=== PATIENT | female | born 1965 | race Caucasian/White ===

== ENCOUNTER 2018-03-21 10:01 | Emergency (ER) | payer BC ==
[~2018-03-21] VITALS: Ht 172.7 cm; Wt 104.3 kg
[~2018-03-21 10:01] MED LIST: CLON0.1T PO; CYCL10TA2 PO; ELET40TA PO; FURO-81 PO; LORC10TA PO; OXYC30TA PO; PARO20TA4 PO; PROP120C PO; SUMA100T4 PO
[2018-03-21 10:22] VITALS: BP 159/53
--- NOTE | 2018-03-21 10:26 | NUR ---
[facility] CALLED FOR ANIMAL CONTROL TO BE NOTIFIED OF DOG BITE
--- NOTE | 2018-03-21 10:35 | NUR ---
ANIMAL CONTROL ANIMAL CONTROL AT PT BEDSIDE AT THIS TIME
--- NOTE | 2018-03-21 10:46 | DIREP ---
PROCEDURE:XRAY HAND MIN 3 VW-LT COMPARISON:None. INDICATIONS:Trauma, DOG BITE TO LEFT HAND FINDINGS: BONES:Three views of the left hand. No acute fracture, radiopaque foreign body, erosive arthritis, or dislocation is seen in the three views of the left hand. JOINTS:Normal. SOFT TISSUES:Normal. OTHER:No additional findings. CONCLUSION:No acute findings in the three views of the left hand. No fracture or radiopaque foreign body is seen. Dictated by: Slim Hart MD on 03/21/2018 at 10:55 AM
--- NOTE | 2018-03-21 10:46 | ER.PDOC ---
General Chief Complaint: Animal Bite Stated Complaint: DOGBITE Time seen by MD: 10:42 Source: patient Exam Limitations: no limitations History of Present Illness Initial Comments Patient's Dog bit her yesterday afternoon. She took the dog to the vet to have her put down. The dog was up to date on her vaccinations. Onset: yesterday Where: home Animal: dog Animal Appearance: appeared well Animal Immunizations: UTD Animal Disposition: Animal Known, Animal Control Notified Context of Attack: "unprovoked" attack Severity of Injury: bitten Injury Location: upper extremity (left hand), lower extremity (right foot) Allergies: Coded Allergies: No Known Allergies (Unverified , 09/10/14) Home Meds Reported Medications Lorcaserin HCl (Belviq) 10 Mg Tablet, 10 MG PO BID, TABLET 08/29/15 Clonidine Hcl (CLONIDINE HCL) 0.1 Mg Tablet, 1 TAB PO HS, #30 TAB 2 Refills 08/29/15 Furosemide (LASIX) 20 Mg Tablet, 1 TAB PO DAILY, #90 TAB 1 Refill 08/29/15 Oxycodone Hcl (OXYCONTIN) 30 Mg Tab.er.12h, 30 MG PO TID PRN for PAIN 08/29/15 Cyclobenzaprine Hcl (FLEXERIL) 10 Mg Tablet, 10 MG PO PRN PRN for MUSCLE SPASM, TABLET 08/29/15 Paroxetine Hcl (PAROXETINE HCL) 20 Mg Tablet, 1 TAB PO DAILY, #30 TAB 5 Refills 08/29/15 Sumatriptan Succinate (SUMATRIPTAN SUCCINATE) 100 Mg Tablet, 100 MG PO PRN PRN for HEADACHE, TABLET 08/29/15 Eletriptan Hbr (RELPAX) 40 Mg Tablet, 40 MG PO PRN PRN for HEADACHE, TABLET 08/29/15 Propranolol Hcl (INNOPRAN XL) 120 Mg Cap.er.24h, 120 MG PO DAILY 08/29/15 Past Medical History Medical History: hypertension Surgical History: cholecystectomy, knee Social History Smoking: non-smoker Alcohol Use: none Drug Use: none Reviewed Nursing Reviewed: Vital Signs, Abn. Noted Review of Systems Constitutional: no symptoms reported Eyes: no symptoms reported Ears: no symptoms reported Nose: no symptoms reported Mouth: no symptoms reported Throat: no symptoms reported Respiratory: no symptoms reported Cardiovascular: no symptoms reported Gastrointestinal: no symptoms reported Musculoskeletal: other (left hand pain) Skin: other (lacerations left hand and right foot) All Other Systems: Reviewed and Negative Physical Exam General Appearance: alert, no distress Skin: laceration (x 2 dorsal left land 1 cm each, puncture wonds on right foot. surrounding erythema and swelling left hand) Neuro/Vascular/Tendon: no vascular compromise, sensation nml, oriented x3, nml ROM, CN's nml as tested HEENT: atraumatic, PERRL, eye lids/conjun nml, ENT nml external inspect. Resp/CVS: chest non-tender, breath sounds nml, heart sounds nml, reg. rate & rhythm Extremities: ROM limited by pain (left hand) EKG/XRAY/CT/US XRAY: hand (No fracture) Course Vitals & review Data Vital Sign - Last 24 Hours 03/21/18 03/21/18 03/21/18 10:15 10:15 10:22 Temp 98.0 98.0 98.0 98.0 98.0 98.0 Pulse 77 77 77 Resp 18 B/P (MAP) 159/53 (88) Pulse Ox 99 99 Departure Time of Disposition: 11:01 Disposition: 01 HOME, SELF-CARE Impression: Primary Impression: Cellulitis and abscess of hand Additional Impressions: Dog bite of hand Dog bite of foot Condition: Stable Patient Instructions: Animal Bite, Cellulitis Referrals: LIBIA LAFLEUR (PCP) PRIMARY CARE PROVIDER Additional Instructions: Take medication as prescribed. Follow up with PCP in 2 days. Return to ED if worsening symptoms Duration or Time Spent with Pa: 30 Problem Qualifiers Additional Impressions: Dog bite of hand Encounter type: initial encounter Laterality: left Qualified Codes: S61.452A - Open bite of left hand, initial encounter; W54.0XXA - Bitten by dog, initial encounter Dog bite of foot Encounter type: initial encounter Laterality: right Qualified Codes: S91.351A - Open bite, right foot, initial encounter; W54.0XXA - Bitten by dog, initial encounter YANELI DESAI DO Mar 21, 2018 10:46
[2018-03-21 11:15] VITALS: BP 154/87
[2018-03-21 11:27] VITALS: BP 159/53
== END 2018-03-21 11:20 | disposition home or self-care (01) ==
LOC: ER 10:01
DX: S61.412A Laceration without foreign body of left hand, initial encounter (principal); S91.351A Open bite, right foot, initial encounter; L03.114 Cellulitis of left upper limb; L02.512 Cutaneous abscess of left hand; I10 Essential (primary) hypertension; Z90.49 Acquired absence of other specified parts of digestive tract; Z79.891 Long term (current) use of opiate analgesic; Z79.899 Other long term (current) drug therapy; W54.0XXA Bitten by dog, initial encounter; Y93.89 Activity, other specified; Y92.098 Other place in other non-institutional residence as the place of occurrence of the external cause; Y99.8 Other external cause status
CPT/HCPCS: 99284; 73130-LT

== ENCOUNTER 2018-04-08 17:56 | Inpatient (IN) | payer BC ==
[~2018-04-08] VITALS: Ht 172.7 cm; Wt 100.2 kg
[~2018-04-08 17:56] MED LIST changes: -DESV50TA PO; -GABA800T2 PO; -SUMA100T3 PO; -VANC250C11 PO
[2018-04-08 18:29] VITALS: BP 120/74
[2018-04-08 19:28] LABS: ABG PCO2 35.1 mmHg (35.0-45.0); ABG PH 7.465 (7.350-7.450); BE(B) 1.3 mmol/L (-2.0-2.0); HCO3act 24.7 mmol/L (22.0-26.0); pO2 53.1 mmHg (75.0-100.0)
--- NOTE | 2018-04-08 19:29 | NUR ---
ABG RESULTS ROMÁN NORWOOD, [employer] WORKER CALLED TO ALERT PO2 53 ON ABG. RECOMMENDED 2L O2/NC DR LEIJA NOTIFIED, VERBAL ORDER RECEIVED FOR OXYGEN AT 2L/NC 2L/NC PLACED ON PATIENT AT THIS TIME OXYGEN SATURATION INCREASED FROM 89-90% ON RA TO 96% ON 2L/NC
[2018-04-08 19:30] VITALS: BP 122/81
--- NOTE | 2018-04-08 20:04 | ER.PDOC ---
General Chief Complaint: General Complaint Stated Complaint: GENERAL COMPLAINT Time seen by MD: 19:56 Source: patient Exam Limitations: no limitations History of Present Illness Initial Comments Diarrhea and abdominal pain for 2 weeks. Seen earlier in Urgent care today and asked to come to the ED for abnormal labs. Severity/Quality: moderate Abdominal Pain Onset Location: Generalized Abdomen Associated Symptoms (diarrhea): watery Prior symptoms/Treatment: Similar symptoms previous, Recenly Seen Allergies: Coded Allergies: No Known Allergies (Unverified , 09/10/14) Home Meds Reported Medications Desvenlafaxine Succinate (PRISTIQ ER) 50 Mg Tab.er.24h, 1 TAB PO DAILY, #30 TAB 5 Refills 04/08/18 Gabapentin (GABAPENTIN) 800 Mg Tablet, 1 TAB PO TID, #90 TAB 3 Refills 04/08/18 Sumatriptan Succinate (IMITREX) 100 Mg Tablet, 100 MG PO PRN PRN for HEADACHE, TABLET 04/08/18 Propranolol Hcl (INNOPRAN XL) 120 Mg Cap.er.24h, 120 MG PO DAILY 08/29/15 Discontinued Reported Medications Lorcaserin HCl (Belviq) 10 Mg Tablet, 10 MG PO BID, TABLET 08/29/15 Clonidine Hcl (CLONIDINE HCL) 0.1 Mg Tablet, 1 TAB PO HS, #30 TAB 2 Refills 08/29/15 Furosemide (LASIX) 20 Mg Tablet, 1 TAB PO DAILY, #90 TAB 1 Refill 08/29/15 Oxycodone Hcl (OXYCONTIN) 30 Mg Tab.er.12h, 30 MG PO TID PRN for PAIN 08/29/15 Cyclobenzaprine Hcl (FLEXERIL) 10 Mg Tablet, 10 MG PO PRN PRN for MUSCLE SPASM, TABLET 08/29/15 Paroxetine Hcl (PAROXETINE HCL) 20 Mg Tablet, 1 TAB PO DAILY, #30 TAB 5 Refills 08/29/15 Sumatriptan Succinate (SUMATRIPTAN SUCCINATE) 100 Mg Tablet, 100 MG PO PRN PRN for HEADACHE, TABLET 08/29/15 Eletriptan Hbr (RELPAX) 40 Mg Tablet, 40 MG PO PRN PRN for HEADACHE, TABLET 08/29/15 Vital Signs First Vital Signs Date Time Temp Pulse Resp B/P (MAP) Pulse Ox O2 Delivery O2 Flow Rate FiO2 03/21/18 11:27 77 04/08/18 18:24 98.3 20 98.3 18 18:24 96 Room Air 04/08/18 18:29 120/74 (89) Last Vital Signs Date Time Temp Pulse Resp B/P (MAP) Pulse Ox O2 Delivery O2 Flow Rate FiO2 04/08/18 19:30 88 18 122/81 (95) 92 Room Air 04/08/18 18:29 98.3 98.3 Past Medical History Medical History: hypertension Surgical History: breast augmentation, cholecystectomy, , knee, tonsillectomy, tubal LMP (females 10-50): tubal Social History Smoking: non-smoker Alcohol Use: none Drug Use: none Constitutional: no symptoms reported EENTM: no symptoms reported Respiratory: no symptoms reported Cardiovascular: no symptoms reported Gastrointestinal: see HPI Genitourinary: no symptoms reported All Other Systems: Reviewed and Negative Physical Exam General Appearance: No Apparent Distress, WD/WN HEENT: PERRL/EOMI, Normal ENT Inspection, TMs Normal, Pharynx Normal Neck: Non-Tender, Full Range of Motion, Supple, Normal Inspection Respiratory: chest non-tender, lungs clear, normal breath sounds, no respiratory distress, no accessory muscle use Cardiovascular: Normal Peripheral Pulses, Regular Rate, Rhythm, No Edema, No Gallop, No JVD, No Murmur Gastrointestinal: Normal Bowel Sounds, No Organomegaly, No Pulsatile Mass, Guarding, Tenderness (generalized) Back: Normal Inspection, No CVA Tenderness, No Vertebral Tenderness Extremities: Normal Range of Motion, Non-Tender, Normal Inspection, No Pedal Edema, No Calf Tenderness, Normal Capillary Refill, Pelvis Stable 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/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 as Tested, No Motor/Sensory Deficits, Alert, Normal Mood/Affect, Oriented x 3 Skin: Normal Color, Warm/Dry Lymphatic: No Adenopathy Results/Orders Results/Orders Laboratory Tests Test 04/08/18 19:24 Blood Gas Sample Site RT BRACIAL ARTERY Blood Gas pH 7.465 (7.350-7.450) Blood Gas PCO2 35.1 mmHg (35.0-45.0) Blood Gas PO2 53.1 mmHg (75.0-100.0) Blood Gas HCO3 24.7 mmol/L (22.0-26.0) Blood Gas Base Excess 1.3 mmol/L (-2.0-2.0) George Test N/A Arterial Blood Oxygen Saturation 87.8 % (95-) Deoxyhemoglobin 12.1 % (0.2-0.6) Carboxyhemoglobin 1.0 % (0.5-1.5) Methemoglobin 0.1 % (0.2-0.6) Total Hemoglobin 13.2 % (13.5-17.5) Total Oxygen Concentration 16.1 % (13.5-17.5) Lactic Acid (Blood Gas) 0.8 MMOL/L (0.5-1.0) Blood Gas Temperature 37 Oxygen Delivery Method (LAB) RA FiO2 21.0 % (20-101) Bicarbonate 25.8 mmol/L (23-27) Administered Medications Medications (Trade) Dose Ordered Sig/Ghislaine Route PRN Reason Start Time Stop Time Status Last Admin Dose Admin Sodium Chloride 1,000 ml @ 1,200 mls/hr Q50M STAT IV 04/08/18 20:05 04/08/18 20:55 DC 04/08/18 20:10 Ketorolac Tromethamine (Toradol) 30 mg STAT STAT IV 04/08/18 20:09 04/08/18 20:10 DC 04/08/18 20:[address] abdomen/pelvis shows colitis and CBD dilated 9mm. Discussed with Dr. Mcgregor, will admit patient here, can go to a room and no antibiotics until stool analysis is back. Departure Time of Disposition: 20:02 Disposition: 09 ADMITTED INPATIENT Impression: Primary Impression: Clostridium difficile colitis Additional Impression: Respiratory failure with hypoxia Qualified Codes: J96.01 - Acute respiratory failure with hypoxia Condition: Stable Referrals: LIBIA LAFLEUR (PCP) PRIMARY CARE PROVIDER Comments Admitted to Dr. Mcgregor Duration or Time Spent with Pa: 60 mins LISS,JOSSELYN Rooney MD Apr 08, 2018 20:04
[2018-04-08] MEDS ORDERED: NS 1000ML 1,000 ML ONE (20:05)
[2018-04-08] MEDS ORDERED: NS 1000ML 1,000 ML IV STA (20:05)
[2018-04-08] MEDS ORDERED: TORADOL IV STA (20:09)
[2018-04-08] MEDS ORDERED: TORADOL ONE (20:12)
[2018-04-08 20:17] VITALS: BP 131/81
[2018-04-08] MEDS ORDERED: GABA800T2 PO (20:17)
[2018-04-08] MEDS ORDERED: DESV50TA PO (20:17)
[2018-04-08] MEDS ORDERED: SUMA100T3 PO (20:17)
--- NOTE | 2018-04-08 20:24 | DIREP ---
PROCEDURE:CHEST 1 VIEW COMPARISON:None. INDICATIONS:hypoxia FINDINGS: LUNGS/PLEURA:No significant pulmonary parenchymal abnormalities. No effusions. VASCULATURE:Normal. Unremarkable pulmonary vasculature. CARDIAC:Normal. No cardiac silhouette abnormality or cardiomegaly. MEDIASTINUM:Normal. No visible mass or adenopathy. BONES:Normal. No fracture or visible bony lesion. OTHER:Negative. CONCLUSION:Normal examination. Dictated by: Levi Quinones M.D. on 04/08/2018 at 08:22 PM
--- NOTE | 2018-04-08 20:27 | PCM.EKG ---
[facility] Test Date: 2018-04-08 Test Time: 20:29:56 Pat Name: KURT CEVALLOS Department: Room: 332 Gender: F [employer] Worker: SALUD : 1965 Requested By: JOSSELYN LEIJA Order Number: [id number] Reading MD: Josselyn LEIJA Measurements Intervals Sieper Rate: 87 P: 53 IL: 160 QRS: 81 QRSD: 86 T: 32 QT: 352 QTc: 423 Interpretive Statements Normal sinus rhythm Low voltage QRS T wave abnormality, consider anterolateral ischemia Abnormal ECG No previous ECG available for comparison Electronically Signed On 04-12-2018 1:37:44 CDT by Josselyn LEIJA Please click the below link to view image of tracing.
[2018-04-08] MEDS ORDERED: IMITREX PO PRN (21:00)
[2018-04-08] MEDS: NEURONTIN PO SCH (21:00)
[2018-04-08 21:15] VITALS: BP 108/55
[2018-04-08] MEDS: NS 1000ML 1,000 ML IV SCH (21:30)
[2018-04-08] MEDS ORDERED: TYLENOL ONE (23:54)
[2018-04-09 01:44] VITALS: BP 135/68
[2018-04-09 05:09] VITALS: BP 154/76
[2018-04-09] MEDS ORDERED: ZOFRAN ONE (05:12)
[2018-04-09] MEDS: ZOFRAN IV PRN ×4 (05:20→23:13)
[2018-04-09 05:35] LABS: BASOPHIL % 0.1 % (0.0-0.2); EOSINOPHIL # 0.3 10^3/uL (0.0-0.2); EOSINOPHIL % 2.4 % (0.0-5.0); HEMOGLOBIN 11.5 g/dL (12.0-15.0); LYMPHOCYTES % 7.2 % (24.0-44.0); MEAN CELL HGB 29.3 pg (26-34); MEAN CELL HGB CONCENTRATION 32.9 g/dL (33-37); MEAN CORP VOLUME 89.1 fL (78-100); MEAN PLATELET VOLUME 9.5 fL (7.8-11.0); MONOCYTES # 0.9 10^3/uL (0.3-0.8); MONOCYTES % 6.4 % (5.0-12.0); NEUTROPHIL # 11.1 10^3/uL (1.8-7.7); NEUTROPHILS % 83.7 % (41.0-85.0); RED CELL DISTRIBUTION WIDTH 12.9 % (11.5-14.5); WHITE BLOOD CELL 13.3 10^3/uL (4.5-11.0)
[2018-04-09] MEDS: VANCOMYCIN HCL PO SCH ×2 (06:00)
[2018-04-09 06:16] LABS: CALCIUM 7.8 mg/dL (8.4-10.5)
--- NOTE | 2018-04-09 06:45 | NUR ---
RECEIVED REPORT FROM Iker MAYS RN. [facility].
[2018-04-09 07:30] VITALS: BP 111/67
--- NOTE | 2018-04-09 07:58 | NUR ---
NOTIFIED DR. MCMAHON OF POTASSIUM LEVEL 3.1. PATIENT C/O PAIN 8/10 TO ABDOMEN AND LOW GRADE FEVER 99.8 NEW ORDERS RECEIVED FOR DILAUDID 1MG Q4HR PRN PAIN. RBTO.
[2018-04-09] MEDS ORDERED: WATER IV SCH ×3 (08:00)
[2018-04-09] MEDS ORDERED: DILAUDID IV PRN (08:00)
[2018-04-09] MEDS ORDERED: VANCOMYCIN HCL IV SCH ×3 (08:00)
[2018-04-09] MEDS ORDERED: [UNRECOGNIZED DRUG - OTHER] IV SCH ×3 (08:00)
[2018-04-09] MEDS: NEURONTIN PO SCH ×3 (08:23→21:21)
[2018-04-09] MEDS: INDERAL PO SCH (09:00)
[2018-04-09] MEDS: NS 1000ML 1,000 ML IV SCH ×3 (09:29→23:08)
--- NOTE | 2018-04-09 11:00 | NUR ---
DR. MCMAHON @ BEDSIDE NEW ORDERS RECEIVED FOR FULL LIQUID DIET WITH BOOST. PATIENT CAN TAKE HOME MEDICATIONS INDERAL AND PRISTIQ.
--- NOTE | 2018-04-09 11:45 | NUR ---
NOTIFIED DR. MCMAHON OF [facility] OF 103.1 NEW ORDERS RECEIVED FOR TYLENOL 1GM PO Q6HR PRN FEVER. RBTO.
[2018-04-09] MEDS: WATER IV SCH ×6 (11:52→18:00)
[2018-04-09] MEDS: [UNRECOGNIZED DRUG - OTHER] IV SCH ×6 (11:52→18:00)
[2018-04-09] MEDS: VANCOMYCIN HCL IV SCH ×6 (11:52→18:00)
[2018-04-09 12:00] VITALS: BP 131/78
[2018-04-09] MEDS: TYLENOL PO PRN ×2 (12:06→19:30)
--- NOTE | 2018-04-09 12:50 | NUR ---
TRANSFERRED TO [facility] FLOOR VIA WHEELCHAIR WITH PATIENT BELONGINGS. REPORT GIVEN TO SARAN BENIETZ. RELINQUISHED CARE.
--- NOTE | 2018-04-09 12:50 | NUR ---
RECEIVED PATIENT TO ROOM 332 FROM ICU. REPORT RECEIVED FROM SARAN MATA. PATIENT AWAKE AND ALERT. C/O ABDOMINAL DISCOMFORT. REPORTS EXPERIENCING DIARRHEA, AND NAUSEA. PATIENT WITH DX OF COLITIS AND RESPIRATORY FAILURE WITH HYPOXIA WHICH IS NOW RESOLVED. PATIENT IS NOW ON ROOM AIR AND NO S/S RESPIRATORY DISTRESS NOTED. PATIENT WITH TEMP 103.1 PRIOR TO TRANSFER TO MED SURG AND MEDICATED WITH TYLENOL. PATIENT WITH IV IN LEFT HAND 20G WITH NS TO INFUSE @ 100CC/HR. IV FLUIDS NOT HANGING AT PRESENT DUE TO TRANSFER. WILL CONNECT TO IV PUMP. INSTRUCTED PATIENT RE: ISOLATION IN ROOM DUE TO CDIFF, INTAKE AND OUTPUT, PAIN MANAGEMENT, S/S IV INFILTRATION, MED REGIME, MD ROUNDS, FULL LIQUID DIET, S/S TO REPORT, BED CONTROLS, USE OF CALL LIGHT. PATIENT VERBALIZES UNDERSTANDING.
--- NOTE | 2018-04-09 14:00 | NUR ---
PATIENT RESTING IN BED. NO DISTRESS NOTED. PATIENT C/O FEELING TIRED AND STATES "IM JUST SO TIRED OF THIS DIARRHEA. IT ALL STARTED FROM A DOG BITE!!" EMOTIONAL SUPPORT GIVEN.
--- NOTE | 2018-04-09 14:20 | NUR ---
TEMP REASSESSED AND TEMP 99.9.
[2018-04-09 16:00] VITALS: BP 124/71
--- NOTE | 2018-04-09 16:00 | NUR ---
TEMP 100.2 AXILLARY. PATIENT LYING IN BED. C/O FEELING SLIGHTLY CHILLED. INSTRUCTED COULD NOT ADD BLANKETS DUE TO TEMP INCREASING. PATIENT VERBALIZED UNDERSTANDING.
[2018-04-09] MEDS: TORADOL IV PRN (17:50)
--- NOTE | 2018-04-09 17:59 | NUR ---
PATIENT C/O PAIN ALL OVER AND NAUSEA. PATIENT ASSISTED UP TO TOILET AND BEGAN TO DRY HEAVE. ADMINISTERED TORADOL 15MG IV AND ZOFRAN 4MG IV. PATIENT WITH DIARRHEA STOOL. PATIENT C/O FEELING FEVERISH AND TEMP IS 102 ORAL. STOOL IS ORANGE WITH THICK MUCOUS AND FOUL ODOR.
--- NOTE | 2018-04-09 18:47 | NUR ---
TEMP RECHECKED WITH RESULTS 101.7. STATES "PAIN IS BETTER BUT MY NECK IS REALLY TENSE."
--- NOTE | 2018-04-09 19:20 | NUR ---
REPORT REPORT RECEIVED FROM ELI Dong RN
--- NOTE | 2018-04-09 19:30 | NUR ---
UPDATE PATIENT GIVEN TYLENOL TO REDUCE FEVER OF 100.5. WILL REASSESS.
[2018-04-09 19:51] VITALS: BP 103/66
--- NOTE | 2018-04-09 22:15 | NUR ---
STATUS UPDATE PATIENT TEMPERATURE DOWN TO 99.5 WILL CONTINUE TO MONITOR.
--- NOTE | 2018-04-09 23:17 | NUR ---
STATUS UPDATE TEMPERATE 98.7. WILL CONTINUE TO MONITOR
[2018-04-10 00:16] VITALS: BP 119/72
[2018-04-10] MEDS: TORADOL IV PRN ×4 (00:24→20:58)
--- NOTE | 2018-04-10 00:27 | NUR ---
STATUS UPDATE PATIENT COMPLAINT OF SEVERE PAIN AND NAUSEA. ZOFRAN AND TORADOL GIVEN, WILL REASSESS. PATIENT TEMPERATURE UP TO 100.5-WILL REASSESS.
[2018-04-10 04:29] VITALS: BP 101/58
[2018-04-10] MEDS: ZOFRAN IV PRN ×4 (04:39→20:46)
[2018-04-10] MEDS: TYLENOL PO PRN (05:00)
[2018-04-10] MEDS: VANCOMYCIN HCL IV SCH ×6 (05:02)
[2018-04-10] MEDS: [UNRECOGNIZED DRUG - OTHER] IV SCH ×6 (05:02)
[2018-04-10] MEDS: WATER IV SCH ×6 (05:02)
[2018-04-10 06:10] LABS: BASOPHIL % 0.1 % (0.0-0.2); EOSINOPHIL # 0.3 10^3/uL (0.0-0.2); EOSINOPHIL % 1.9 % (0.0-5.0); HEMOGLOBIN 10.6 g/dL (12.0-15.0); LYMPHOCYTES # 0.6 10^3/uL (1.0-4.8); LYMPHOCYTES % 3.7 % (24.0-44.0); MEAN CELL HGB 29.4 pg (26-34); MEAN CELL HGB CONCENTRATION 33.1 g/dL (33-37); MEAN CORP VOLUME 88.9 fL (78-100); MEAN PLATELET VOLUME 9.7 fL (7.8-11.0); MONOCYTES # 0.7 10^3/uL (0.3-0.8); MONOCYTES % 4.3 % (5.0-12.0); NEUTROPHIL # 13.9 10^3/uL (1.8-7.7); NEUTROPHILS % 89.7 % (41.0-85.0); RED CELL DISTRIBUTION WIDTH 13.2 % (11.5-14.5); WHITE BLOOD CELL 15.5 10^3/uL (4.5-11.0)
[2018-04-10 06:51] LABS: CALCIUM 7.5 mg/dL (8.4-10.5); CARBON DIOXIDE 25.8 mmol/L (20.0-32)
--- NOTE | 2018-04-10 07:25 | NUR ---
REPORT RECEIVED REPORT FROM SARAN MONSALVE. ASSUMED CARE FOR PATIENT AT THIS TIME.
[2018-04-10 08:41] VITALS: BP 115/73
[2018-04-10] MEDS: NEURONTIN PO SCH ×3 (09:00→20:59)
[2018-04-10] MEDS: NS 1000ML 1,000 ML IV SCH ×2 (09:01→21:54)
[2018-04-10] MEDS: INDERAL PO SCH (09:35)
--- NOTE | 2018-04-10 09:44 | NUR ---
GABAPENTIN NOT GIVEN DUE TO PATIENT ALREADY TAKING HER HOME MED THIS MORNING.
[2018-04-10] MEDS ORDERED: WATER PO SCH ×3 (10:26)
[2018-04-10] MEDS ORDERED: VANCOMYCIN HCL PO SCH ×3 (10:26)
[2018-04-10] MEDS ORDERED: [UNRECOGNIZED DRUG - OTHER] PO SCH ×3 (10:26)
[2018-04-10] MEDS ORDERED: MAGNESIUM SULFATE 50 ML IV ONE (11:00)
[2018-04-10] MEDS: [UNRECOGNIZED DRUG - REMARK] PO SCH (11:27)
[2018-04-10] MEDS: VANCOMYCIN HCL PO SCH ×6 (12:00→18:00)
[2018-04-10] MEDS: [UNRECOGNIZED DRUG - OTHER] PO SCH ×6 (12:00→18:00)
[2018-04-10] MEDS: WATER PO SCH ×6 (12:00→18:00)
[2018-04-10 12:03] VITALS: BP 109/72
[2018-04-10 12:21] LABS: BAND NEUTROPHILS 22 % (2-6); EOSINOPHIL 4 % (1-4); LYMPHOCYTE 2 % (25-36); MONOCYTE 3 % (3-9); MYELOCYTES 1 %; SEGMENTED NEUTROPHILS 66 % (31-76)
[2018-04-10] MEDS: KLOR-CON 10 PO SCH ×2 (15:01→20:59)
[2018-04-10 16:32] VITALS: BP 107/84
[2018-04-10 19:02] VITALS: BP 117/78
--- NOTE | 2018-04-10 21:47 | HPH ---
ADMIT DATE: 04/09/2018 CHIEF COMPLAINT: Diarrhea and abdominal pain for 2 weeks. HISTORY OF PRESENT ILLNESS: The patient is a 53-year-old woman with a past medical history significant for chronic pain with opiate dependence, hypertension, history of migraine headaches, and anxiety disorder. She presented to urgent care earlier in the day prior to presentation to ER with complaints of 2-week history of diarrhea and abdominal pain. She recently had been on some antibiotics. She is not sure which ones. It appears that might have been on Augmentin. She states she did complete those antibiotics. She started developing watery diarrhea about the third day of taking antibiotics. Symptoms continued to progress. She started having significant abdominal pain. She went to urgent care and they had some labs drawn. She is told to go to the Emergency Room due to the abnormal labs. She had a WBC count 19.5 on those labs. Workup in ER did reveal she had clinical history consistent with C. diff colitis and C. diff toxin A and B was positive. PAST MEDICAL HISTORY: Includes hypertension, trigeminal neuralgia, chronic pain with opiate dependence, anxiety. PAST SURGICAL HISTORY: She has had tonsillectomy, right knee replacement, x 2, breast augmentation, cholecystectomy and tubal ligation. ALLERGIES: NO KNOWN DRUG ALLERGIES. HOME MEDICATIONS: List includes Pristiq 50 mg daily, gabapentin 800 mg 3 times a day, propranolol 120 mg daily, Imitrex as needed for headaches. SOCIAL HISTORY: Does live at home. Denies any alcohol, tobacco or illicit drug use history. FAMILY HISTORY: Negative for early coronary artery disease or diabetes. REVIEW OF SYSTEMS: CARDIAC: Denies chest pain, shortness of breath or dyspnea on exertion. PULMONARY: No cough, sputum production or pleuritic chest pain. GASTROINTESTINAL: Positive for nausea, diarrhea, abdominal pain. All else negative in 10 point review of system except as in HPI. PHYSICAL EXAMINATION: VITAL SIGNS: Upon arrival to the ER: Height 172.7 cm, weight 97.98 kilograms, temperature 98.3, pulse 89, respiratory rate is 20, blood pressure 120/74, O2 saturation 96% on room air. GENERAL: She is alert, in no acute distress at time of exam. HEENT: Pupils equal, round, reactive to light. Sclerae are anicteric. Oropharynx at time of exam was clear. Mucous membranes are slightly dry. NECK: Supple, no lymphadenopathy. CARDIOVASCULAR: At time of exam was regular rate and rhythm. LUNGS: Clear bilaterally. No wheezing. ABDOMEN: Soft. Bowel sounds are present. She is tender to palpation diffusely. No rebound or guarding. EXTREMITIES: No cyanosis, clubbing or significant edema. NEUROLOGIC: Grossly nonfocal. LABORATORY DATA: Her initial WBC count yesterday in urgent care was 19.5. Labs today, CBC: WBCs are 13.3, hemoglobin 11.5, platelets 245. Differential: 84% neutrophils, 7% lymphocytes, 6% monocytes. Sodium 137, potassium 3.1, chloride 103, CO2 is 28, BUN 7, creatinine 1.02, glucose 123, calcium 7.8. Initial lactate of 0.8. C. diff toxin A and B is positive. IMAGING STUDIES: She had a chest x-ray performed in the Emergency Room, which was normal. ASSESSMENT AND PLAN: This patient is a 53-year-old woman here with C. diff colitis with history of hypertension, chronic pain. 1. We will start with oral vancomycin for the C. diff colitis, it is fairly moderately advanced form of C. diff and was very symptomatic. 2. Continue her cardiovascular medications. 3. P.r.n. sumatriptan for headaches. 4. DVT prophylaxis with SCDs. 5. She has a history of chronic pain with opiate dependence. We will alternate between hydromorphone and Toradol for relief of pain. Continue gabapentin. Time spent on 04/09/2018 was 45 minutes. This plan was discussed with the patient. She is her own decision maker. She does understand and concur with plans. Time spent on history and physical is 45 minutes. Jonn Mcgregor MD DR: KHALIF/sharmin JOB# [id number]
[2018-04-11 00:09] VITALS: BP 99/61
[2018-04-11] MEDS: TORADOL IV PRN ×3 (04:00→17:01)
[2018-04-11] MEDS: ZOFRAN IV PRN ×3 (04:00→17:01)
[2018-04-11 04:43] VITALS: BP 116/75
[2018-04-11] MEDS: NS 1000ML 1,000 ML IV SCH ×2 (05:48→19:30)
[2018-04-11] MEDS: WATER PO SCH ×12 (06:00→20:59)
[2018-04-11] MEDS: [UNRECOGNIZED DRUG - OTHER] PO SCH ×12 (06:00→20:59)
[2018-04-11] MEDS: VANCOMYCIN HCL PO SCH ×12 (06:00→20:59)
[2018-04-11 07:32] VITALS: BP 126/70
[2018-04-11] MEDS ORDERED: REGLAN IV PRN (08:00)
[2018-04-11 08:28] LABS: BASOPHIL % 0.2 % (0.0-0.2); EOSINOPHIL # 0.5 10^3/uL (0.0-0.2); EOSINOPHIL % 5.3 % (0.0-5.0); HEMOGLOBIN 10.5 g/dL (12.0-15.0); LYMPHOCYTES % 10.6 % (24.0-44.0); MEAN CELL HGB 29.2 pg (26-34); MEAN CELL HGB CONCENTRATION 33.3 g/dL (33-37); MEAN CORP VOLUME 87.5 fL (78-100); MEAN PLATELET VOLUME 9.8 fL (7.8-11.0); MONOCYTES # 0.6 10^3/uL (0.3-0.8); MONOCYTES % 6.5 % (5.0-12.0); NEUTROPHIL # 7.5 10^3/uL (1.8-7.7); NEUTROPHILS % 76.4 % (41.0-85.0); RED CELL DISTRIBUTION WIDTH 13.2 % (11.5-14.5); WHITE BLOOD CELL 9.9 10^3/uL (4.5-11.0)
[2018-04-11 08:50] LABS: CALCIUM 7.6 mg/dL (8.4-10.5); CARBON DIOXIDE 21.3 mmol/L (20.0-32)
[2018-04-11] MEDS: NEURONTIN PO SCH ×3 (09:00→20:58)
[2018-04-11] MEDS: [UNRECOGNIZED DRUG - REMARK] PO SCH (09:00)
[2018-04-11] MEDS: INDERAL PO SCH (09:00)
--- NOTE | 2018-04-11 09:00 | NUR ---
STATUS PT AMBULATED TO BATHROOM AND BACK TO BED. SCD'S IN PLACE.
[2018-04-11] MEDS: KLOR-CON 10 PO SCH ×3 (09:08→20:58)
[2018-04-11] MEDS: PROTONIX IV IV SCH (09:08)
[2018-04-11] MEDS: BACID PO SCH (09:08)
--- NOTE | 2018-04-11 09:48 | NUR ---
MEDICATION GABAPENTIN NOT GIVEN DUE TO PATIENT HAVING ALREADY TAKEN HER HOME MED THIS MORNING. INDEROL AND PRISTIQ WERE NOT AVAILABLE. PT WILL TAKE HOME MEDS.
--- NOTE | 2018-04-11 11:00 | NUR ---
DISCHARGE GOAL CM VISITED WITH PATIENT REGARDING DISCHARGE PLAN AND NEEDS. PATIENT LIVES AT HOME WITH HER AND KIDS. SHE IS RETIRED, ACTIVE AND INDEPENDENT AND DOES NOT USE ANY TYPE OF DME. DISCHARGE GOAL IS TO DISCHARGE HOME WITH HER FAMILY AND CONTINUE ROUTINE SELF CARE. CM DEPT WILL CONTINUE TO MONITOR DISCHARGE NEEDS.
[2018-04-11 11:42] VITALS: BP 112/75
[2018-04-11 16:44] VITALS: BP 116/68
--- NOTE | 2018-04-11 19:51 | NUR ---
Report Received report from Geri Ann LVN
[2018-04-11 22:16] VITALS: BP 111/75
--- NOTE | 2018-04-11 23:09 | PNH ---
DATE: 04/10/2018 SUBJECTIVE: She still has nausea and diarrhea. She has significant abdominal pain and is using Dilaudid frequently. No other acute events overnight. OBJECTIVE: VITAL SIGNS: T-max last 24 hours 100.5, pulse of 80, respiratory rate 18, blood pressure 107/84, O2 saturation 93% on room air. GENERAL: She is alert, in no acute distress at time of exam. HEENT: Pupils equal, round, reactive to light. Sclerae are anicteric. Oropharynx is clear. Mucous membranes are moist. NECK: Supple, no lymphadenopathy. CARDIOVASCULAR: At time of exam was regular rate and rhythm. LUNGS: Clear bilaterally. ABDOMEN: Soft. Bowel sounds are present. Tender to palpation diffusely. No rebound or guarding. EXTREMITIES: No cyanosis, clubbing or significant edema. NEUROLOGIC: Grossly nonfocal. LABORATORY DATA: CBC: White count 15.5, hemoglobin 10.6, platelets 241. Differential: 90% neutrophils, 4% lymphocytes, 4% monocytes. Sodium 139, potassium 2.7, chloride 104, CO2 is 26, BUN 11, creatinine 1.1, glucose is 119, magnesium is 1.5, total bilirubin 0.6, AST 15, ALT is 11, alkaline phosphatase 86, total protein 4.8, albumin is 1.8. ASSESSMENT AND PLAN: The patient is a 53-year-old woman with C. diff colitis with severe protein-calorie malnutrition, multiple electrolyte abnormalities including hypomagnesemia, hypokalemia, with anemia likely due to chronic disease. 1. We will continue oral vancomycin q.6 hours. She has refused a couple of doses, delayed the timing due to her concern for nausea. 2. The diet will be as tolerated with supplements. We will ask for Boost or Ensure. Time spent on 04/10/2018 was 25 minutes. Jonn Mcgregor MD DR: KHALIF/sharmin JOB# [id number]
--- NOTE | 2018-04-11 23:39 | PNH ---
DATE: 04/11/2018 SUBJECTIVE: She is still having some diarrhea, relatively small in volume. Reportedly, she is not ambulating except to get out of bed to go to the bathroom. She delayed her morning dose of vancomycin due to not feeling well. She did get one bottle of Ensure last night. OBJECTIVE: VITAL SIGNS: T-max last 24 hours is 100.1, pulse 97, respiratory rate is 18, blood pressure 126/70, O2 saturation 97% on room air. GENERAL: She is alert, in no acute distress at time of exam. HEENT: Pupils equal, round and reactive to light. Sclerae are anicteric. Oropharynx is clear. Mucous membranes are moist. NECK: Supple, no lymphadenopathy. CARDIOVASCULAR: At time of exam was regular rate and rhythm. LUNGS: Clear bilaterally. No wheezing. ABDOMEN: Soft. Bowel sounds are present, slightly tender to palpation. EXTREMITIES: No cyanosis, clubbing or significant edema. NEUROLOGIC: Grossly nonfocal. ASSESSMENT AND PLAN: The patient is a 53-year-old woman here with Clostridium difficile colitis, severe protein-calorie malnutrition, multiple electrolyte abnormalities. 1. We will add a probiotic to her meal, continue with Ensure, continue oral vancomycin. Encourage the patient to take vancomycin as scheduled. 2. Appropriate p.r.n. pain and nausea medication. We will add Toradol and IV Protonix. She is actually waking up to ask for Dilaudid on schedule. Time spent on 04/11/2018 is 25 minutes. Jonn Mcgregor MD DR: KHALIF/sharmin JOB# [id number] GERMAINE
[2018-04-12 02:01] VITALS: BP 118/69
[2018-04-12] MEDS: VANCOMYCIN HCL PO SCH ×12 (02:14→21:38)
[2018-04-12] MEDS: [UNRECOGNIZED DRUG - OTHER] PO SCH ×12 (02:14→21:38)
[2018-04-12] MEDS: WATER PO SCH ×12 (02:14→21:38)
[2018-04-12] MEDS: ZOFRAN IV PRN ×2 (04:53→10:59)
[2018-04-12] MEDS: TORADOL IV PRN ×2 (04:56→11:01)
[2018-04-12 05:20] VITALS: BP 118/69
[2018-04-12] MEDS: NS 1000ML 1,000 ML IV SCH ×2 (05:30→15:30)
--- NOTE | 2018-04-12 06:50 | NUR ---
REPORT RECEIVED REPORT FROM MORIS BRYANT. ASSUMED CARE OF PT.
[2018-04-12 08:27] VITALS: BP 123/86
[2018-04-12] MEDS: [UNRECOGNIZED DRUG - REMARK] PO SCH (09:00)
[2018-04-12] MEDS: NEURONTIN PO SCH ×3 (09:00→21:39)
[2018-04-12] MEDS: KLOR-CON 10 PO SCH ×3 (09:42→21:39)
[2018-04-12] MEDS: BACID PO SCH (09:42)
[2018-04-12] MEDS: PROTONIX IV IV SCH (09:42)
[2018-04-12] MEDS: INDERAL PO SCH (09:45)
[2018-04-12 11:10] VITALS: BP 108/72
--- NOTE | 2018-04-12 15:03 | NUR ---
STATUS PT IS RESTING IN BED. NO SIGNS OF DISCOMFORT OR DISTRESS. PT EDUCATED ON DIET UPON DISCHARGE. PT STATES SHE WILL TAKE A SHOWER. PT IS INDEPENDENT ON ADL'S. NO OTHER NEEDS NOTED. PT STATES SHE WILL CALL WHEN SHE'S OUT OF THE SHOWER. CALL LIGHT IS WITHIN REACH.
[2018-04-12 15:47] VITALS: BP 117/68
--- NOTE | 2018-04-12 19:14 | NUR ---
REPORT REPORT GIVEN TO ONCOMING SHIFT
[2018-04-12 20:36] VITALS: BP 117/76
[2018-04-12] MEDS: TYLENOL PO PRN (20:45)
--- NOTE | 2018-04-12 23:20 | PNH ---
DATE: 04/12/2018 SUBJECTIVE: She is feeling better. She is eating a little bit better. She states she still has some diarrhea. No other acute events overnight. OBJECTIVE: VITAL SIGNS: T-max last 24 hours is 98.9, pulse 88, respiratory rate is 18, blood pressure 118/69, O2 saturation 96% on room air. GENERAL: She is alert, in no acute distress at time of exam. HEENT: Pupils equal, round, reactive to light. Sclerae are anicteric. Oropharynx is clear. Mucous membranes are moist. NECK: Supple, no lymphadenopathy. CARDIOVASCULAR: Regular rate and rhythm. LUNGS: Clear bilaterally. ABDOMEN: Soft. Bowel sounds are present, nontender to palpation. EXTREMITIES: No cyanosis, clubbing or significant edema. NEUROLOGIC: Grossly nonfocal. ASSESSMENT AND PLAN: The patient is a 53-year-old woman here with Clostridium difficile colitis with anemia due to chronic disease and possibly some mild blood loss with severe protein-calorie malnutrition with Wingina criteria being insufficient caloric intake, loss of muscle mass, loss of cook jelly strength. 1. We will continue oral vancomycin. 2. Encourage increased nutrition. 3. Encourage ambulation. 4. The patient is making clinical improvement, likely will be able to transition to home antibiotic therapy soon. Time spent on 04/12/2018 is 25 minutes. Jonn Mcgregor MD DR: KHALIF/sharmin JOB# [id number]
[2018-04-13 00:22] VITALS: BP 125/74
[2018-04-13] MEDS: NS 1000ML 1,000 ML IV SCH ×2 (01:30→11:13)
[2018-04-13] MEDS: VANCOMYCIN HCL PO SCH ×9 (03:52→12:00)
[2018-04-13] MEDS: WATER PO SCH ×9 (03:52→12:00)
[2018-04-13] MEDS: [UNRECOGNIZED DRUG - OTHER] PO SCH ×9 (03:52→12:00)
[2018-04-13 04:39] VITALS: BP 136/84
[2018-04-13 05:49] LABS: BASOPHIL % 0.5 % (0.0-0.2); EOSINOPHIL # 0.9 10^3/uL (0.0-0.2); EOSINOPHIL % 10.2 % (0.0-5.0); HEMOGLOBIN 9.8 g/dL (12.0-15.0); LYMPHOCYTES # 2.5 10^3/uL (1.0-4.8); LYMPHOCYTES % 29.7 % (24.0-44.0); MEAN CELL HGB 29.2 pg (26-34); MEAN CELL HGB CONCENTRATION 32.6 g/dL (33-37); MEAN CORP VOLUME 89.6 fL (78-100); MEAN PLATELET VOLUME 8.9 fL (7.8-11.0); MONOCYTES # 1.1 10^3/uL (0.3-0.8); MONOCYTES % 12.8 % (5.0-12.0); NEUTROPHIL # 3.9 10^3/uL (1.8-7.7); NEUTROPHILS % 46.6 % (41.0-85.0); RED CELL DISTRIBUTION WIDTH 13.5 % (11.5-14.5); WHITE BLOOD CELL 8.3 10^3/uL (4.5-11.0)
[2018-04-13 06:00] LABS: CALCIUM 8.2 mg/dL (8.4-10.5); CARBON DIOXIDE 24.2 mmol/L (20.0-32)
[2018-04-13] MEDS: ZOFRAN IV PRN (07:49)
[2018-04-13] MEDS: TORADOL IV PRN (07:50)
[2018-04-13] MEDS: PROTONIX IV IV SCH (07:50)
[2018-04-13] MEDS: BACID PO SCH (07:50)
[2018-04-13] MEDS: KLOR-CON 10 PO SCH ×2 (07:51→15:56)
[2018-04-13] MEDS: NEURONTIN PO SCH ×2 (07:51→15:56)
[2018-04-13] MEDS: INDERAL PO SCH (07:52)
[2018-04-13] MEDS: [UNRECOGNIZED DRUG - REMARK] PO SCH (07:52)
[2018-04-13 07:57] VITALS: BP 122/78
[2018-04-13] MEDS ORDERED: VANC250C11 PO (09:01)
[2018-04-13 12:36] VITALS: BP 122/80
--- NOTE | 2018-04-13 14:22 | DSH ---
DATE OF DISCHARGE: 04/13/2018 ADMITTING DIAGNOSES: Clostridium difficile colitis with periumbilical pain and diarrhea with a history of hypertension, trigeminal neuralgia and chronic pain syndrome and anxiety. DISCHARGE DIAGNOSES: Clostridium difficile colitis with hypertension and chronic pain syndrome. HOSPITAL COURSE: The patient is a 53-year-old female who came in with periumbilical pain with diarrhea. Her C. diff toxin was positive. She was admitted and started on p.o. vancomycin with a probiotic. Her white count was elevated, coming in. Throughout the course of the hospital stay, her white count has normalized. Her electrolytes have normalized. So at this point, she is tolerating p.o. intake. I explained to her that we will need to treat her C. diff colitis and she will need to be scoped down the road since she is past 49 years of age as it is, but at this point, she is stable, she will be discharged today. I will continue p.o. vancomycin for 9 more days to complete a 14-day course. I have asked her to take a probiotic twice a day as well for the next 3 weeks. Resume her home medications. Regular diet. I have asked her to follow up with her primary care provider who is at the [facility] next week. Leatha Cash MD DR: VAN/sharmin JOB# [id number]
[2018-04-13 16:08] VITALS: BP 122/80
--- NOTE | 2018-04-13 16:10 | NUR ---
DISCHARGE PT TRANSPORTED VIA W/C BY PEPE NOONAN TO [employer]IVATE [employer] AND BUCKLED IN. SPOUSE AT SIDE.
== END 2018-04-13 16:10 | disposition home or self-care (01) | DRG 871 ==
LOC: ER 17:56 → ICU 20:09 → MS 04-09 13:00 → EDPENDDISTM 04-13 16:00 → EDPENDDISDT 04-13 20:48
PROVIDERS: ADMIT Internal Medicine; ATTEND Internal Medicine
DX: A41.9 Sepsis, unspecified organism (principal); E43 Unspecified severe protein-calorie malnutrition; A04.72 Enterocolitis due to Clostridium difficile, not specified as recurrent; D63.8 Anemia in other chronic diseases classified elsewhere; E83.42 Hypomagnesemia; E87.6 Hypokalemia; G89.4 Chronic pain syndrome; G43.909 Migraine, unspecified, not intractable, without status migrainosus; F41.9 Anxiety disorder, unspecified; I10 Essential (primary) hypertension; Z96.651 Presence of right artificial knee joint; Z90.49 Acquired absence of other specified parts of digestive tract; Z98.51 Tubal ligation status; Z79.899 Other long term (current) drug therapy; Z68.33 Body mass index [BMI] 33.0-33.9, adult
CPT/HCPCS: 36415; 36600; 71045; 80048; 80053; 82803; 83630; 83735; 85025; 87040; 87045; 87230; 93005; 96361; 96374; 99285; C9113; J1885; J2405; J3475; J3480; J7030; A4216

== ENCOUNTER → 2018-04-08 | Outpatient (CLI) | payer BC ==
[~2018-04-08] MED LIST changes: +DESV50TA PO; +GABA800T2 PO; +SUMA100T3 PO; +VANC250C11 PO
[2018-04-08 13:44] LABS: BASOPHIL % 0.2 % (0.0-0.2); EOSINOPHIL # 0.2 10^3/uL (0.0-0.2); EOSINOPHIL % 1.2 % (0.0-5.0); HEMOGLOBIN 12.9 g/dL (12.0-15.0); LYMPHOCYTES # 1.6 10^3/uL (1.0-4.8); MEAN CELL HGB 29.7 pg (26-34); MEAN CELL HGB CONCENTRATION 33.6 g/dL (33-37); MEAN CORP VOLUME 88.3 fL (78-100); MEAN PLATELET VOLUME 8.9 fL (7.8-11.0); MONOCYTES # 1.3 10^3/uL (0.3-0.8); MONOCYTES % 6.6 % (5.0-12.0); NEUTROPHIL # 16.3 10^3/uL (1.8-7.7); NEUTROPHILS % 83.8 % (41.0-85.0); WHITE BLOOD CELL 19.5 10^3/uL (4.5-11.0)
[2018-04-08 14:01] LABS: CALCIUM 8.5 mg/dL (8.4-10.5); CARBON DIOXIDE 28.4 mmol/L (20.0-32)
[2018-04-08 14:13] LABS: BAND NEUTROPHILS 2 % (2-6); LYMPHOCYTE 13 % (25-36); SEGMENTED NEUTROPHILS 76 % (31-76)
[2018-04-08 14:14] LABS: EOSINOPHIL 1 % (1-4); MONOCYTE 8 % (3-9)
--- NOTE | 2018-04-13 11:08 | DIREP ---
PROCEDURE: CT ABDOMEN/PELVIS W/O CONTRAST COMPARISON: None. INDICATIONS: R10.32 LLQ PAIN TECHNIQUE: Axial images were created through the abdomen and pelvis without intravenous contrast material. No oral contrast was administered. Sagittal and coronal reconstructions were performed from source images. FINDINGS: LUNG BASES: Mild dependent atelectatic change. Bilateral breast prostheses. LIVER: Normal. No significant liver lesions are identified. BILIARY: Gallbladder surgically absent. No prominent CBD, measuring up to 9 mm. No radiopaque stone. PANCREAS: Mild fatty atrophy. No focal lesion. SPLEEN: No focal lesion. Two accessory splenules are seen. ADRENALS: Normal. No mass or enlargement. URINARY TRACT: No hydronephrosis, nephrolithiasis, or ureteral calculi. Urinary bladder within normal limits. AORTA/VASCULAR: Limited without IV contrast. No aortic aneurysmal dilatation. IVC nondilated. RETROPERITONEUM: Subcentimeter lymph nodes without focal mass. No lymphadenopathy. BOWEL/MESENTERY: Lack of oral contrast limits evaluation of the bowel structures. Small hiatal hernia. No small bowel dilatation seen to suggest obstruction. Diffuse colonic wall thickening with surrounding inflammatory change most pronounced within the cecum, proximal ascending colon, and sigmoid colon. A few scattered diverticula seen. Findings could represent colitis versus diverticulitis. No focal fluid collection or abscess is seen. No evidence of perforation. ABDOMINAL WALL: Normal. No mass or hernia. PELVIC ORGANS: Uterus within normal limits. Surgical clips within the left adnexal, likely secondary to tubal ligation. No adnexal masses. BONES: Visualized osseous structures are intact. OTHER: No inguinal adenopathy. CONCLUSION: 1. Diffuse cecal and colonic wall thickening and surrounding inflammatory change. Findings concerning for colitis. Diverticulitis could also be considered. Clinical and laboratory correlation is recommended. 2. CBD dilatation up to 9 mm. Gallbladder surgically absent. No radiopaque stone. 3. Additional findings as described. Dictated by: Maulik Hart MD on 04/08/2018 at 12:57 PM AINE
== END | disposition home or self-care (01) ==
LOC: CT 12:25
PROVIDERS: ATTEND Nurse Practitioner Adult Health
DX: K57.30 Diverticulosis of large intestine without perforation or abscess without bleeding (principal); J98.11 Atelectasis; R50.9 Fever, unspecified; I10 Essential (primary) hypertension; Z90.49 Acquired absence of other specified parts of digestive tract; Z90.89 Acquired absence of other organs
CPT/HCPCS: 36415; 74176; 80053; 85025

== ENCOUNTER 2019-07-22 20:32 | Emergency (ER) | payer BC ==
[~2019-07-22] VITALS: Ht 172.7 cm; Wt 99.8 kg
[~2019-07-22 20:32] MED LIST changes: +DESV50TA PO; +GABA800T5 PO; +SUMA100T3 PO; +VANC250C11 PO
--- NOTE | 2019-07-22 21:12 | ER.PDOC ---
General Chief Complaint: Requesting Medical Care Stated Complaint: HIGH BLOOD PRESSURE TRAVEL OUT OF US: No Time seen by MD: 21:24 Source: patient, family Exam Limitations: no limitations History of Present Illness Initial Comments 54 Y/O F WITH HX TO ED WITH TYPICAL MIGRAINE LARSON, STARTED X 3 HRS AGO, TOOK HER BLOOD PRESSURE AND WAS 180/115 AND THEN HAD A PANIC ATTACK. NO CHEST PAIN, NO VOMITING, NO SOB, NO FEVER, NO TICK OR INSECT EXP. 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 Timing/Duration: 4-6 hours Severity: moderate Allergies: Coded Allergies: No Known Allergies (Unverified , 09/10/14) Home Meds Active Scripts Vancomycin Hcl (VANCOCIN HCL) 250 Mg Capsule, 250 MG PO QID, #36 CAP 0 Refills Prov:MECHELLE NUNEZ MD 04/13/18 Reported Medications Desvenlafaxine Succinate (PRISTIQ ER) 50 Mg Tab.er.24h, 1 TAB PO DAILY, #30 TAB 5 Refills 04/08/18 Gabapentin (GABAPENTIN) 800 Mg Tablet, 1 TAB PO TID, #90 TAB 3 Refills 04/08/18 Sumatriptan Succinate (IMITREX) 100 Mg Tablet, 100 MG PO PRN PRN for HEADACHE, TABLET 04/08/18 Propranolol Hcl (INNOPRAN XL) 120 Mg Cap.er.24h, 120 MG PO DAILY 08/29/15 Past Medical History Medical History: hypertension, other Surgical History: breast augmentation, cholecystectomy, , knee, tonsillectomy, tubal Family History Significant Family History: no pertinent family hx Social History Smoking: non-smoker Alcohol Use: none Drug Use: none Reviewed Nursing Reviewed: Vital Signs, Abn. Noted, Nursing Assessment Review of Systems Constitutional: no symptoms reported EENTM: no symptoms reported Respiratory: no symptoms reported Cardiovascular: no symptoms reported Gastrointestinal: no symptoms reported Genitourinary: no symptoms reported Musculoskeletal: no symptoms reported Skin: no symptoms reported Psychiatric/Neurological: anxiety, headache Hematologic/Lymphatic: no symptoms reported Immunological/Allergic: no symptoms reported Physical Exam General Appearance: No Apparent Distress, Anxious, Moderate Distress EENT: eyes nml inspection, nml ENT inspection, pharynx nml Neck: Non-Tender, Full Range of Motion, Supple, Normal Inspection Respiratory: chest non-tender, lungs clear, normal breath sounds, no respiratory distress CVS: reg rate & rhythm, no murmur, no gallop, pulses nml Gastrointestinal: Normal Bowel Sounds, No Organomegaly, No Pulsatile Mass, Non Tender Back: Normal Inspection Extremities: Normal Range of Motion, Non-Tender, Normal Inspection 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 Results/Orders Results/Orders Orders - FANNIE ALBERTS DO Saline Lock (07/22/19 21:21) 0.9 % Sodium Chloride (Ns 1000ml) (07/22/19 21:21) Magnesium 2 Gm/Water 50ml (Magnesium Sul (07/22/19 21:30) Ekg-Routine (07/22/19 21:21) Magnesium 2 Gm/Water 50ml (Magnesium Sul (07/22/19 21:37) 0.9 % Sodium Chloride (Ns 1000ml) (07/22/19 21:37) Diphenhydramine Hcl (Benadryl) (07/22/19 22:45) Prochlorperazine Edisylate (Compazine) (07/22/19 22:45) Diphenhydramine Hcl (Benadryl) (07/22/19 22:53) Prochlorperazine Edisylate (Compazine) (07/22/19 22:54) Vital Signs Date Time Temp Pulse Resp B/P (MAP) Pulse Ox O2 Delivery O2 Flow Rate FiO2 07/22/19 21:34 98.5 72 18 07/22/19 21:29 98.5 72 18 98 Room Air 07/22/19 21:29 98.5 72 18 165/101 (122) 98 Administered Medications Medications (Trade) Dose Ordered Sig/Ghislaine Route PRN Reason Start Time Stop Time Status Last Admin Dose Admin Diphenhydramine HCl (Benadryl) 25 mg STAT STAT IV 07/22/19 22:45 07/22/19 22:46 DC 07/22/19 22:55 25 MG Magnesium Sulfate 50 ml @ 50 mls/hr STAT ONCE IV 07/22/19 21:30 07/22/19 22:29 DC 07/22/19 22:11 50 MLS/HR Prochlorperazine Edisylate (Compazine) 10 mg STAT STAT IV 07/22/19 22:45 07/22/19 22:46 DC 07/22/19 22:55 10 MG Sodium Chloride 1,000 ml @ 0 mls/hr Q0M STAT IV 07/22/19 21:21 07/22/19 21:25 DC 07/22/19 22:11 0 MLS/HR Progress Progress LARSON BETTER--WANTS TO GO HOME. Course Sepsis Screening Results: Posi: NEGATIVE Sepsis Qualifier/Stage: NO DEFINITE RISK Duration or Total Time Spent w: 60 mins Vitals & review Data Vital Sign - Last 24 Hours 07/22/19 07/22/19 07/22/19 21:29 21:29 21:34 Temp 98.5 98.5 98.5 Pulse 72 72 72 Resp 18 18 18 B/P (MAP) 165/101 (122) Pulse Ox 98 98 O2 Delivery Room Air LEVEL 1 SEPSIS INFECTION CRITE: ABX Therapy, Abdominal Pain LEVEL 2-SIRS (LIST ALL THAT AP: None/Not assessed Cardiovascular Evidence: Not Assessed or None Hematologic Evidence: None/Not assessed Hepatic Evidence: None/Not assessed Metabolic Evidence: None/Not assessed Neurological Evidence: None/Not assessed Respiratory Evidence: None/Not assessed Renal Evidence: None/Not assessed Departure Time of Disposition: 23:21 Disposition: 01 HOME, SELF-CARE Impression: Primary Impression: Headache Additional Impression: HTN (hypertension) Condition: Stable Patient Instructions: Migraine Headache Referrals: LIBIA LAFLEUR (PCP) PRIMARY CARE PROVIDER Additional Instructions: TO ED NEEDED OR IF WORSE, TO DRIVE HOME, DRINK PLENTY WATER. Duration or Time Spent with Pa: 20 MIN Problem Qualifiers FANNIE ALBERTS DO Jul 22, 2019 21:12
[2019-07-22] MEDS ORDERED: NS 1000ML 1,000 ML IV STA (21:21)
[2019-07-22 21:29] VITALS: BP 165/101
[2019-07-22] MEDS ORDERED: MAGNESIUM SULFATE 50 ML IV ONE ×2 (21:30→21:37)
[2019-07-22 21:34] VITALS: BP 165/101
[2019-07-22] MEDS ORDERED: NS 1000ML 1,000 ML ONE (21:37)
--- NOTE | 2019-07-22 21:40 | PCM.EKG ---
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
[2019-07-22] MEDS ORDERED: BENADRYL IV STA (22:45)
[2019-07-22] MEDS ORDERED: COMPAZINE IV STA (22:45)
[2019-07-22] MEDS ORDERED: BENADRYL ONE (22:53)
[2019-07-22] MEDS ORDERED: COMPAZINE ONE (22:54)
[2019-07-23 00:05] VITALS: BP 162/94
== END 2019-07-23 00:10 | disposition home or self-care (01) ==
LOC: ER 20:32
DX: G43.909 Migraine, unspecified, not intractable, without status migrainosus (principal); I10 Essential (primary) hypertension; F41.0 Panic disorder [episodic paroxysmal anxiety]; Z79.899 Other long term (current) drug therapy; Z90.49 Acquired absence of other specified parts of digestive tract
CPT/HCPCS: 93005; 96365; 96375; 99284; J0780; J1200; J3475; J7030

== ENCOUNTER → 2019-07-27 | Outpatient (CLI) | payer BC ==
--- NOTE | 2019-07-27 19:18 | DIREP ---
PROCEDURE:CHEST 2 VIEWS COMPARISON:[facility], CR, XRAY CHEST SINGLE VW, 04/08/2018, 07:45 PM. INDICATIONS:SOB FINDINGS: LUNGS/PLEURA:No significant pulmonary parenchymal abnormalities. No effusions. The lungs are clear. No pneumonia, heart failure or effusions are seen VASCULATURE:Normal. Unremarkable pulmonary vasculature. CARDIAC:Normal. No cardiac silhouette abnormality or cardiomegaly. MEDIASTINUM:Normal. No visible mass or adenopathy. BONES:Normal. No fracture or visible bony lesion. OTHER:Negative. CONCLUSION:No active disease. No pneumonia is identified. Dictated by: Slim Hart MD on 07/27/2019 at 07:14 PM
== END | disposition home or self-care (01) ==
LOC: RAD 18:52
PROVIDERS: ATTEND Nurse Practitioner Family
DX: I10 Essential (primary) hypertension (principal); R06.02 Shortness of breath
CPT/HCPCS: 71046

== ENCOUNTER 2021-03-19 03:30 | Emergency (ER) | payer BC ==
[~2021-03-19 03:30] MED LIST changes: -PROP120C PO; +[UNRECOGNIZED DRUG - CODE] PO
--- NOTE | 2021-03-19 10:18 | PCM.EKG ---
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
[2021-03-19 16:43] LABS: CALCIUM 8.5 mg/dL (8.4-10.5)
--- NOTE | 2021-03-21 14:06 | DIREP ---
PROCEDURE: CT HEAD WITHOUT CONTRAST TECHNIQUE: Axial cuts were obtained through the head, without intravenous contrast material. The images were viewed at brain and bone settings. COMPARISON: [facility], CT, CT HEAD BRAIN W/O CONTRAST, 05/31/2016, 02:36 PM. INDICATIONS: HEADACHE FINDINGS: VENTRICLES: Normal. CEREBRUM: Normal. CEREBELLUM: Normal. BRAINSTEM: Normal. SKULL: Normal. SINUSES: Near complete opacification right maxillary, right ethmoid and bilateral frontal sinuses. OTHER: Negative. CONCLUSION: 1. No intracranial abnormalities. 2. Sinusitis. Dictated by: Hal Kennedy M.D. on 03/19/2021 at 04:58 AM [facility]
== END 2021-03-19 05:27 | disposition home or self-care (01) ==
LOC: ER 03:30
DX: I10 Essential (primary) hypertension (principal); J32.9 Chronic sinusitis, unspecified
CPT/HCPCS: 36415; 70450; 80053; 93005; 99285